=== PATIENT | female | born 1990 | race Caucasian/White ===

== ENCOUNTER 2019-01-17 22:18 | Emergency (ER) | payer MEDICAID ==
[~2019-01-17] VITALS: Ht 172.7 cm; Wt 79.4 kg
[~2019-01-17 22:18] MED LIST: ACETAMINOPHEN325 MG PO; DEMEROL50 MG PO; IBUPROFEN600 MG PO; PRENATAL COMPLE1 TAB PO; ZANTAC150 MG PO
[2019-01-17 22:24] VITALS: Ht 172.7 cm; Wt 79.4 kg
[2019-01-18] MEDS ORDERED: VIBRAMYCIN 100100 MG PO (00:11)
[2019-01-18] MEDS ORDERED: TORADOL10 MG PO (00:12)
[2019-01-18 00:39] VITALS: BP 128/82
== END 2019-01-18 00:30 | disposition home or self-care (01) ==
LOC: D.ER 22:18
DX: L02.415 Cutaneous abscess of right lower limb (principal)

== ENCOUNTER 2020-01-14 13:57 | Outpatient (CLI) | payer MEDICAID ==
[2019-01-17 22:24] VITALS: BMI 32.6
[~2020-01-14 13:57] MED LIST changes: +TORADOL10 MG PO; +VIBRAMYCIN 100100 MG PO
[2020-01-14 14:16] LABS: BILIRUBIN NEGATIVE (NEGATIVE); GLUCOSE NEGATIVE (NEGATIVE); KETONE LARGE mg/dL (NEGATIVE); NITRITE NEGATIVE (NEGATIVE); UROBILINOGEN NORMAL (NORMAL)
[2020-01-14 14:18] LABS: BACTERIA MANY /hpf (NEGATIVE); EPITHELIAL CELLS 0-5 /hpf (0-5); RED CELLS - URINE 0-5 /hpf (0-5); WHITE CELLS - URINE 0-5 /hpf (NEGATIVE)
[2020-01-14 14:24] LABS: UDS - AMPHET NEGATIVE QUAL (NEGATIVE); UDS - BARB NEGATIVE QUAL (NEGATIVE); UDS - BENZO NEGATIVE QUAL (NEGATIVE); UDS - COCAINE NEGATIVE QUAL (NEGATIVE); UDS - OPIATE NEGATIVE QUAL (NEGATIVE); UDS - PCP NEGATIVE QUAL (NEGATIVE); UDS - THC NEGATIVE QUAL (NEGATIVE)
[2020-01-14] MEDS ORDERED: PROTONIX40 MG PO (14:58)
== END 2020-01-14 18:20 | disposition home or self-care (01) ==
LOC: D.LDO 13:57
PROVIDERS: ATTEND Obstetrics & Gynecology
DX: O26.899 Other specified pregnancy related conditions, unspecified trimester (principal); Z3A.00 Weeks of gestation of pregnancy not specified; N85.8 Other specified noninflammatory disorders of uterus

== ENCOUNTER 2020-02-04 20:10 | Inpatient (IN) | payer MEDICAID ==
[~2020-02-04] VITALS: Ht 172.7 cm; Wt 118.2 kg
[~2020-02-04 20:10] MED LIST changes: +PROTONIX40 MG PO
[2020-02-04 21:02] LABS: HEMATOCRIT 32.5 % (36.0-48.0); HEMOGLOBIN 10.6 g/dL (12-16); MCH 27.2 pg (26.0-34.0); MCHC 32.6 g/dL (31.0-37.0); MCV 83.5 fL (80.0-100.0); MEAN PLATELET VOLUME 9.5 fL (7.4-10.4); RBC 3.89 10x6/uL (4.00-5.40); RDW 14.7 % (11.5-14.5); WBC 12.2 10x3/uL (4.8-10.8)
[2020-02-04] MEDS ORDERED: KEFLEX500 MG (21:13)
[2020-02-04] MEDS ORDERED: KEFLEX500 MG PO (21:13)
[2020-02-04] MEDS ORDERED: ZOFRAN4 MG (21:14)
[2020-02-04 21:37] VITALS: BP 120/72; Ht 172.7 cm; Wt 118.2 kg
[2020-02-04 21:51] LABS: UDS - AMPHET NEGATIVE QUAL (NEGATIVE); UDS - BARB NEGATIVE QUAL (NEGATIVE); UDS - BENZO NEGATIVE QUAL (NEGATIVE); UDS - COCAINE NEGATIVE QUAL (NEGATIVE); UDS - OPIATE NEGATIVE QUAL (NEGATIVE); UDS - PCP NEGATIVE QUAL (NEGATIVE); UDS - THC NEGATIVE QUAL (NEGATIVE)
--- NOTE | 2020-02-05 23:20 | NUR ---
PATIENT UP TO VOID WITH STEADY GAIT. VOIDED 500ML URINE, PERICARE DONE WITH BETADINE AND WATER IN SQUUEZE BOTTLE. CLEAN PAD AND PANTIES PLACED. VITAL SIGNS COMPLETED. FUNDUS FIRM/ML/U-1. BLEEDING REMAINS SMALL.
--- NOTE | 2020-02-05 23:50 | NUR ---
REC'D REPORT FROM Justin MEDRANO RN. PT TRANSPORTED VIA W/C TO RM 1219. PT ORIENTED TO ROOM, CALL LIGHT AND PHONE/NUMBERS. PT REPORTS ABD CRAMPING AND VERBALIZES UNDERSTANDING THAT MOTRIN RECENTLY GIVEN IS THE ONLY PAIN MEDICATION SHE HAS ORDERED. WARM BLANKET OFFERED IF PT FEELS HER ABD CRAMPING IS TOO BAD. DECLINES AT THIS TIME. CHIPS AND CRANBERRY JUICE SERVED PT PT REQEUST FOR A SNACK AND DRINK. BED IN LOW POSITION. SIDE RAILS UP X2. CALL LIGHT AND PHONE AT PT'S SIDE. NO FURTHER NEEDS AT THIS TIME.
--- NOTE | 2020-02-06 00:30 | NUR ---
ROUNDS MADE, PT LYING TO RT SIDE WITH EYES CLOSED. OPENS THEM SPONTANEOUSLY WITH THIS RN'S ENTRY. DENIES NEEDS.
--- NOTE | 2020-02-06 02:35 | NUR ---
ROUNDS MADE. PT FOUND TO BE SLEEPING IN SUPINE POSITION W/BABY UP IN ARMS. PT AWAKENED TO INFOR HER THAT BABY WILL BE TRANSFERED TO OPEN CRIB FOR SAFETY. NBN NURSE ENTERS THE ROOM AT THE SAME TIME. PT REQUEST BABY BE TAKEN TO NBN SO SHE MAY REST. NO NEEDS VOICED.
--- NOTE | 2020-02-06 04:35 | NUR ---
ROUNDS MADE. PT RESTING W/EYES CLOSED TO RT SIDE. RESP EVEN AND UNLABORED. PT LEFT UNDISTURBED.
--- NOTE | 2020-02-06 06:05 | NUR ---
ROUNDS MADE. PT RESTING TO LEFT SIDE. UNAWARE OF RN'S ENTRY TO THE ROOM. RESP EVEN AND UNLABORED. PT LEFT UNDISTURBED.
[2020-02-06 06:11] LABS: RAPID PLASMA REAGIN Non Reactive (Non Reactive)
--- NOTE | 2020-02-06 06:30 | NUR ---
PT RINGS CALL LIGHT. THIS RN TO BEDSIDE. PT REQUESTING MOTRIN AT TIME. SEE EMAR FOR ADMIN. DR SUNG TO ROOM AT THIS TIME TO SEE PT. PT REPORTS ABD CRAMPING PAIN. TO ORDER 1 TIME DOSE OF PERCOCET.
[2020-02-06 07:15] VITALS: BP 125/74
--- NOTE | 2020-02-06 07:30 | NUR ---
IN ROOM FOR ASSESSMENT. MOM SITTING UP IN BED WITH BABY. REQUESTED SOMETHIG FOR PAIN EARLIER. ONE TIME DOSE OF PERCACET GIVEN PO. HRR, LUNGS CLEAR KAITLYNN. ABD SOFT WITH BS X 4. FUNDAS FIRM. MODERATE BLEEDING NOTED. MOM TO GET UP TO SHOWER TODAY. WANTS TO WAIT TIL IS HERE TO HELP. REQUESTED NIPPLE SHIELD. CONT. PLAN OF CARE.
[2020-02-06 08:34] LABS: BASOPHILS 0.2 % (0-2); EOSINOPHILS 0.9 % (0-7); HEMATOCRIT 29.9 % (36.0-48.0); HEMOGLOBIN 9.7 g/dL (12-16); IMMATURE GRANULOCYTES 1.1 % (0-5); LYMPHOCYTES 17.8 % (15-50); MCH 27.3 pg (26.0-34.0); MCHC 32.4 g/dL (31.0-37.0); MCV 84.2 fL (80.0-100.0); MEAN PLATELET VOLUME 9.3 fL (7.4-10.4); PLATELET COUNT 201 10x3/uL (130-400); RBC 3.55 10x6/uL (4.00-5.40); RDW 14.6 % (11.5-14.5); WBC 12.6 10x3/uL (4.8-10.8)
--- NOTE | 2020-02-06 09:17 | NUR ---
TOOK MOM SOME LANOLIN CREME. MOM STATED SHE WAS GETTING SORE FROM BF. TOLD MOM TO ONLY NURSE 20MIN PER SIDE.
--- NOTE | 2020-02-06 10:49 | NUR ---
MOM REQUESTED HERNANDO LOC BE TAKEN OUT. I EXPLAINED THAT WE WOULD HAVE TO START ANOTHER IV IF SHE STARTED BLEEDING HEAVILY, MOM WAS OK WITH THAT. MOMS BLEEDING MILD-MOD. HERNANDO LOC D/C'D. MOM HAD SHOWER AND IS UP AND AMBULATING IN THE HALLWAY.
--- NOTE | 2020-02-06 11:37 | NUR ---
URINE OUTPUT 300ML.
--- NOTE | 2020-02-06 12:47 | NUR ---
MOM REQUESTED PAIN MED AND SOMETHING FOR ACID REFLUX. MEDS GIVEN.
--- NOTE | 2020-02-06 16:28 | MORECARE ---
CASE MANAGEMENT DISCHARGE SUMMARY PATIENT: DAVID WRIGHT UNIT: [id number] ADM DATE: 02/04/20 AGE: 29 : 89 SEX: F ROOM/BED: D.1219 AUTHOR: LARS MARQUES PHYSICIAN: REFERRING PHYSICIAN: MIRIAM SUNG DO DATE OF SERVICE: 02/06/20 Discharge Plan Patient Name: [facility]ID WRIGHT [facility] [facility] 1990 Planned Disposition: Home Anticipated Discharge Date: Discharge Date: Expected LOS: Initial Reviewer: [email or web address] Initial Review Date: 02/04/2020 Generated: 02/06/20 5:28 pm Patient Name: DAVID WRIGHT Page [phone] at 1628 All edits/amendments must be made on the electronic document DICTATION DATE: 02/06/208 PATROL AGENT: ASHLEY 02/06/208 RPT#: [id number] DC DATE: STATUS: ADM IN [facility] [address] [place] [address] END OF REPORT
--- NOTE | 2020-02-06 16:37 | MORECARE ---
CASE MANAGEMENT DISCHARGE SUMMARY PATIENT: DAVID WRIGHT UNIT: [id number] ADM DATE: 02/04/20 AGE: 29 : 89 SEX: F ROOM/BED: D.1219 AUTHOR: LARS MARQUES PHYSICIAN: REFERRING PHYSICIAN: MIRIAM SUNG DO DATE OF SERVICE: 02/06/20 Discharge Plan Patient Name: [facility]ID WRIGHT [facility] [facility] 1990 Planned Disposition: Home Anticipated Discharge Date: 02/07/20 Discharge Date: Expected LOS: 3 Initial Reviewer: [email or web address] Initial Review Date: 02/04/2020 Generated: 02/06/20 5:37 pm Last DP export: 02/06/20 3:28 p Patient Name: DAVID WRIGHT Page [phone] at 1637 All edits/amendments must be made on the electronic document DICTATION DATE: 02/06/20 1637 HEALTH POLICY ANALYST: DM 02/06/20 1637 RPT#: [id number] DC DATE: STATUS: ADM IN [facility] [address] [place] [address] END OF REPORT
[2020-02-06 20:00] VITALS: BP 132/84
--- NOTE | 2020-02-06 20:30 | NUR ---
ASSESSMENT COMPLETED. PT IS IN BED HOLDING HER BABY BOY. HEART SOUNDS ARE GOOD, LUNGS CLEAR, BOWEL SOUNDS HEARD. SKIN IS WARM AND DRY. FUNDUS IS FIRM, LOCHIA LIGHT. PT HAS BEEN WALKING THE HALLS TODAY. HER IS HOME WITH THE OTHER CHILDREN TONALEX. PT ASKED IF SHE COULD HAVE A SANDWICH TRAY. THIS WAS SERVED WITH APPLE JUICE OVER ICE. I SAW AN ORDER FOR ROMINA. AND MENTIONED IT TO HER. SHE WAS EXCITED TO KNOW SHE COULD HAVE ONE. THIS WAS PLACED ON HER RIGHT SHOULDER. I PUT A TOP SHEET AND BLANKET ON HER BED AND SHE STATED SHE WAS GOING TO TAKE A NAP WHILE THE BABY WAS SLEEPING.
--- NOTE | 2020-02-06 21:04 | NUR ---
PT ASKED IF SHE COULD HAVE A MOTRIN. THIS WAS GIVEN. PAIN LEVEL A 5
--- NOTE | 2020-02-06 22:00 | NUR ---
PT WALKING IN HALLS. SHE WANTED COOKIES AND WENT TO VENDING MACHINE ACROSS THE [place] AND THE BABY STAYED WITH NURSES FOR A MINUTE. SHE HAS NO C/ O
--- NOTE | 2020-02-06 23:23 | NUR ---
PT IS IN BED GOING TO SLEEP. BABY IN CRIB BESIDE HER. NO C/0 OR NEEDS.
--- NOTE | 2020-02-07 02:12 | NUR ---
PT IS SLEEPING WELL. BABY IS IN THE NURSERY. NO C/O OR NEEDS
--- NOTE | 2020-02-07 04:00 | NUR ---
PT IS AWAKE AND ALERT TAKING CARE OF THE BABY. SHE HAS NO C/O OR NEEDS AT THIS TIME.
--- NOTE | 2020-02-07 04:00 | NUR ---
PT IS SLEEPING WELL. NO C/O OR NEEDS AT THIS TIME
--- NOTE | 2020-02-07 06:10 | NUR ---
PT IS STILL SLEEPING. NO C/O OR NEED AT THIS TIME.
[2020-02-07 08:00] VITALS: BP 138/88
--- NOTE | 2020-02-07 08:00 | NUR ---
SHIFT ASSESSMENT COMPLETED PER FLOWSHEET. VSS. FUNDUS FIRM, MIDLINE AND U2 WITH SCANT RUBRA LOCHIA, NO CLOTS NOTED. VERBALIZES UNDERSTANDING OF PERICARE CARE. REPORTS THAT SHE IS PASSING FLATUS AND VOIDING WITHOUT DIFFICULTY. EXPRESSES THAT SHE WANTS TO D/C HOME GL[place]IA THIS AFTERNOON AND VERBALIZES UNDERSTANDING OF GBS STATUS THAT WILL REMAIN ADMITTED AT LEAST UNTIL HE IS 48 HOURS OLD. EDUCATED ON S/S OF INFECTIONS, PP BLEEDING, AND PP CARE, VERBALIZES UNDERSTANDING. POC DISCUSSED, VERBALIZES UNDERSTANDING AND DENIES QUESTION. REFUSES SCD'S AT THIS TIME. TO ROOM PER NBN STAFF. INFANT PLACED IN PT ARMS. C/O BACKACHE AND ABD CRAMPING, MOTRIN PROVIDED PER REQUESTS. DENIES ADDITIONAL NEEDS. BED IN LOW POSITION WITH SRUP X2. CALL LIGHT AND PHONE WITHIN REACH. WILL CONTINUE TO MONITOR.
--- NOTE | 2020-02-07 08:47 | NUR ---
DENIES PAIN AND NEEDS. BONDING WITH INFANT. WILL CONTINUE TO MONITOR.
--- NOTE | 2020-02-07 10:03 | NUR ---
UPDATED ON POC AND PLANS FOR D/C TO ROOM IN, VERBALIZES UNDERSTANDING AND APPRECIATION. QUESTIONS REGARDING POSSIBLE EARILER INFANT D/C ANSWERED AND ENCOURAGED PT TO DISCUSS WITH PEDI.
--- NOTE | 2020-02-07 10:10 | NUR ---
UP TO SHOWER. LINENS CHANGED. STEADY GAIT NOTED. VERBALIZES UNDERSTANDING OF BR CALL LIGHT USE.
--- NOTE | 2020-02-07 10:18 | NUR ---
OUT OF SHOWER AND AMBULATORY ON UNIT. STEADY GAIT NOTED. DENIES NEEDS. WILL CONTINUE TO MONITOR.
[2020-02-07] MEDS ORDERED: FUROSEMIDE20 MG PO (10:22)
--- NOTE | 2020-02-07 13:09 | NUR ---
RHOGAM, LASIX, AND TDAP GIVEN PER ORDER AND PT REQUEST. EDUCATED ON ALL MEDS AND INFO SHEETS PROVIDED ON RHOGAM AND TDAP. VERBALIZES UNDERSTANDING AND DENIES QUESTIONS.
--- NOTE | 2020-02-07 13:13 | NUR ---
VERBAL AND WRITTEN D/C INSTRUCTIONS GIVEN TO PT. [facility] PP CARE INSTRUCTION HANDOUT, SAVE YOUR LIFE HANDOUT, COMMUNITY RESOURCES HANDOUT AND INFO TO TOBACCO QUITLINE PROVIDED. PT STATES THAT IS CONSIDERING HAVE A BTL FOR CONTROL AND PLANS TO DISCUSS WITH DR. SUNG AT PP APPT. PT REPORTS THAT SHE HAS MEDICAID. DISCUSSED SIGNING TUBAL CONSENT AND THAT FORM IS REQUIRED TO BE SIGNED AT LEAST 30 DAYS PRIOR TO BTL BEING DONE. PT REQUESTS TO SIGN CONSENT AT THIS TIME. STERILIZATION CONSENT FORM SIGNED WITH PT AND PT PROVIDED WITH COPY OF FORM. WILL FAX COPY TO [facility].
--- NOTE | 2020-02-09 08:04 | MORECARE ---
CASE MANAGEMENT DISCHARGE SUMMARY PATIENT: DAVID WRIGHT UNIT: [id number] ADM DATE: 02/04/20 AGE: 29 : 89 SEX: F ROOM/BED: D.1278 AUTHOR: LARS MARQUES PHYSICIAN: REFERRING PHYSICIAN: MIRIAM SUNG DO DATE OF SERVICE: 02/09/20 Discharge Plan Patient Name: DAVID WRIGHT [facility] [facility] 1990 Planned Disposition: Home Anticipated Discharge Date: 02/07/20 Discharge Date: 02/07/2020 Expected LOS: 3 Initial Reviewer: [email or web address] Initial Review Date: 02/04/2020 Generated: 02/09/20 9:04 am Last DP export: 02/06/20 3:37 p Patient Name: DAVID WRIGHT Page [id number] at 0804 All edits/amendments must be made on the electronic document DICTATION DATE: 02/09/20 0804 TRANSITIONAL CARE NURSE: ASHLEY 02/09/20 08 RPT#: [id number] DC DATE:02/07/20 STATUS: DIS IN [facility] [address] [place] [address] END OF REPORT
--- NOTE | 2020-02-09 17:14 | MORECARE ---
CASE MANAGEMENT DISCHARGE SUMMARY PATIENT: DAVID WRIGHT UNIT: [id number] ADM DATE: 02/04/20 AGE: 29 : 89 SEX: F ROOM/BED: D.1278 AUTHOR: LARS MARQUES PHYSICIAN: REFERRING PHYSICIAN: MIRIAM SUNG DO DATE OF SERVICE: 02/09/20 Discharge Plan Patient Name: DAVID WRIGHT [facility] [facility] 1990 Planned Disposition: Home Anticipated Discharge Date: 02/07/20 Discharge Date: 02/07/2020 Expected LOS: 3 Initial Reviewer: [email or web address] Initial Review Date: 02/04/2020 Generated: 02/09/20 6:13 pm Last DP export: 02/09/20 7:04 a Patient Name: DAVID WRIGHT Page [phone] at 1714 All edits/amendments must be made on the electronic document DICTATION DATE: 02/09/201712 SALES ACTIVITY MANAGER: ASHLEY 02/09/201712 RPT#: [id number] DC DATE:02/07/20 STATUS: DIS IN [facility] [address] [place] [address] END OF REPORT
== END 2020-02-07 13:13 | disposition home or self-care (01) | DRG 807 ==
LOC: D.LD 20:10 → D.WS 20:10 → D.LD 02-06 19:00
PROVIDERS: ADMIT Student in an Organized Health Care Education/Training Program; ATTEND Student in an Organized Health Care Education/Training Program
PROC: 10E0XZZ Delivery of Products of Conception, External Approach (ICD-10-PCS; principal; 2020-02-05)
PROC: 10907ZC Drainage of Amniotic Fluid, Therapeutic from Products of Conception, Via Natural or Artificial Opening (ICD-10-PCS; 2020-02-05)
PROC: 3E033VJ Introduction of Other Hormone into Peripheral Vein, Percutaneous Approach (ICD-10-PCS; 2020-02-05)
DX: O99.824 Streptococcus B carrier state complicating childbirth (principal); Z37.0 Single live birth; Z3A.39 39 weeks gestation of pregnancy; O69.81X0 Labor and delivery complicated by cord around neck, without compression, not applicable or unspecified; O71.82 Other specified trauma to perineum and vulva; O12.05 Gestational edema, complicating the puerperium

== ENCOUNTER → 2020-10-04 13:52 | Outpatient (CLI) | payer MEDICAID ==
[~2020-10-04 13:52] MED LIST changes: +FLAGYL500 MG PO; +FUROSEMIDE20 MG PO; +KEFLEX500 MG; +KEFLEX500 MG PO; +ZOFRAN4 MG; +ZOLOFT50 MG PO
--- NOTE | 2020-10-04 14:05 | NUR ---
18G IV PLACED TIMES 1 [address]ICK RO RIGHT HAND, GOOD BLOOD RETURN NOTED. UNABLE TO OBTAIN LAB WORK. FLUSHES WITHOUT DIFFICULTY.
[2020-10-04 14:07] VITALS: BP 136/96; Ht 172.7 cm
--- NOTE | 2020-10-04 14:10 | NUR ---
BLOOD DRAWN TIMES 1 STICK TO RIGHT AC WITH BUTTERFLY NEEDLE. SENT WITH CLINICAL LAB.
--- NOTE | 2020-10-04 14:21 | NUR ---
DR. CRAIG PAGED FOR PAIN MEDICATION ORDERS.
[2020-10-04 14:35] LABS: BASOPHILS 0.2 % (0-2); EOSINOPHILS 1.4 % (0-7); HEMATOCRIT 35.9 % (36.0-48.0); HEMOGLOBIN 11.6 g/dL (12-16); IMMATURE GRANULOCYTES 0.7 % (0-5); LYMPHOCYTE ABS# 2.67 10x3/uL (1.18-3.74); LYMPHOCYTES 20.9 % (15-50); MCH 28.2 pg (26.0-34.0); MCHC 32.3 g/dL (31.0-37.0); MCV 87.3 fL (80.0-100.0); MEAN PLATELET VOLUME 9.3 fL (7.4-10.4); MONOCYTES 7.1 % (2-11); NEUTROPHIL ABS# 8.88 10x3/uL (1.56-6.13); NEUTROPHILS 69.7 % (40-80); PLATELET COUNT 207 10x3/uL (130-400); RBC 4.11 10x6/uL (4.00-5.40); RDW 14.6 % (11.5-14.5); WBC 12.8 10x3/uL (4.8-10.8)
[2020-10-04 14:54] LABS: INR 1.01 (0.85-1.17); PROTIME 12.3 SECONDS (11.6-15.0)
[2020-10-04 14:55] LABS: APTT 29.6 SECONDS (22.8-39.4)
[2020-10-04 14:56] LABS: CALC OSMOLALITY 278 mosm/kg (275-300); CALCIUM 8.5 mg/dL (8.5-10.1); CARBON DIOXIDE 24.5 mmol/L (21.0-32.0); CHLORIDE - SERUM 107 mmol/L (98-107); CREATININE - SERUM 0.6 mg/dL (0.6-1.3); GLUCOSE 99 mg/dL (74-106); POTASSIUM - SERUM 3.7 mmol/L (3.5-5.1); SODIUM 141 mmol/L (136-145); UREA NITROGEN 8 mg/dL (7-18); eGFR NON AFRICAN AMERICAN > 90 mL/min (90-120)
[2020-10-04 15:18] LABS: ALBUMIN 2.5 g/dL (3.4-5.0); ALKALINE PHOSPHATASE 85 U/L (30-120); ALT (SGPT) 14 U/L (10-68); BILIRUBIN - TOTAL 0.16 mg/dL (0.2-1.3); HCG - QUANTITATIVE (MATERNAL) 297 mIU/mL; PROTEIN - SERUM 6.2 g/dL (6.4-8.2)
[2020-10-04 17:48] LABS: BASOPHILS 0.2 % (0-2); EOSINOPHILS 1.2 % (0-7); HEMATOCRIT 32.3 % (36.0-48.0); HEMOGLOBIN 10.7 g/dL (12-16); IMMATURE GRANULOCYTES 0.8 % (0-5); LYMPHOCYTE ABS# 3.03 10x3/uL (1.18-3.74); LYMPHOCYTES 23.7 % (15-50); MCHC 33.1 g/dL (31.0-37.0); MCV 87.5 fL (80.0-100.0); MEAN PLATELET VOLUME 9.1 fL (7.4-10.4); MONOCYTES 4.5 % (2-11); NEUTROPHIL ABS# 8.93 10x3/uL (1.56-6.13); NEUTROPHILS 69.6 % (40-80); PLATELET COUNT 181 10x3/uL (130-400); RBC 3.69 10x6/uL (4.00-5.40); RDW 14.6 % (11.5-14.5); WBC 12.8 10x3/uL (4.8-10.8)
--- NOTE | 2020-10-04 19:11 | NUR ---
DR CRAIG SPEAKS W/D NICOLE SCHOFIELD TO REPORT ANTIBIOTICS AND [facility] HAS BEEN CALLED TO THE [facility] FOR PT. ORDERS REC'D PT MAY BE DISCHARGED HOME NOW.
== END | disposition home or self-care (01) ==
LOC: D.LDO 13:52 → D.ER 13:52 → EDSTATUS 14:14
PROVIDERS: Family Medicine; ATTEND Obstetrics & Gynecology
DX: O36.4XX0 Maternal care for intrauterine death, not applicable or unspecified (principal); Z3A.16 16 weeks gestation of pregnancy; Z37.1 Single stillbirth